=== PATIENT | female | born 1995 | race Caucasian/White ===

== ENCOUNTER 2016-12-02 21:45 | Emergency (ER) | payer SELFPAY ==
[~2016-12-02] VITALS: Ht 154.9 cm; Wt 57.8 kg
[2016-12-02 23:20] LABS: HEMATOCRIT 35.9 % (36.0-46.0); MCH 29.8 PG (29.0-34.0); MCHC 33.4 G/DL (30.0-36.0); MCV 89.1 FL (83-99); PLATELET COUNT 210 K/uL (156-360); RBC DIS.WIDTH-CV 14.1 % (11.8-14.6); RBC DIS.WIDTH-SD 45.1 % (39-53); RED BLOOD COUNT 4.03 M/uL (3.80-5.20); WHITE BLOOD COUNT 11.1 K/uL (4.1-10.2)
[2016-12-02 23:27] LABS: CHLORIDE 112 mEq/L (99-109); D-DIMER ELISA < 150.00 ng/mLDDU (<230); POTASSIUM 3.7 mEq/L (3.7-5.4); SODIUM 143 mEq/L (136-147)
[2016-12-02 23:28] LABS: MAGNESIUM 2.2 mg/dL (1.3-2.7)
[2016-12-02 23:30] LABS: GLUCOSE 97 mg/dL (70-99)
[2016-12-02 23:31] LABS: ANION GAP 7 MEQ/L (2-14)
[2016-12-02 23:32] LABS: TOTAL BILIRUBIN 0.4 mg/dL (0.0-1.0)
[2016-12-02 23:34] LABS: ALKALINE PHOSPHATASE 48 IU/L (3-129); GFR ESTIMATE (CALCULATED) > 59 mL/min/
[2016-12-02 23:35] LABS: UREA NITROGEN (BUN) 7 mg/dL (9-23)
[2016-12-02 23:37] LABS: LIPASE 31 U/L (1.0-51.0)
[2016-12-02 23:38] LABS: CREATINE KINASE 30 IU/L (1-294); TOTAL CK 30 IU/L (1-294)
[2016-12-02 23:39] LABS: TROP-I INTERPRETATION NEGATIVE; TROPONIN-I < 0.01 ng/mL (0.0-0.30)
[2016-12-02 23:46] LABS: QUANTITATIVE HCG < 4.0 MIU/ML
[2016-12-02 23:47] LABS: CK-MB 0.4 ng/mL (0.0-4.9)
[2016-12-03 00:29] LABS: ADD MIUA? YES; BILIRUBIN NEGATIVE; BLOOD NEGATIVE; COLOR STRAW ((YELLOW)); GLUCOSE (STRIP) NEGATIVE; KETONES 5; LEUKOCYTES MODERATE; NITRITE NEGATIVE; PROTEIN (STRIP) NEGATIVE; SPECIFIC GRAVITY 1.006 (1.000-1.030); UROBILINOGEN 0.2 MG/DL (0.2-1.0)
[2016-12-03 00:44] LABS: BACTERIA RARE /HPF; EPITHELIAL CELLS 1+ /HPF; MUCUS TRACE /LPF; RED BLOOD CELLS 0-5 /HPF (0-5); UCUL ADDED? YES
[2016-12-03 01:25] LABS: TROP-I INTERPRETATION NEGATIVE; TROPONIN-I < 0.01 ng/mL (0.0-0.30)
[2016-12-03 01:53] VITALS: BP 118/64
== END 2016-12-03 02:00 | disposition home or self-care (01) ==
LOC: EME 21:45 → EDBD 21:45 → EME 12-03 02:00
PROVIDERS: Emergency Medicine
DX: R07.89 Other chest pain (principal); R00.2 Palpitations; N39.0 Urinary tract infection, site not specified; I47.1 Supraventricular tachycardia; I45.10 Unspecified right bundle-branch block; F41.9 Anxiety disorder, unspecified; Z98.890 Other specified postprocedural states
CPT/HCPCS: 71020; 80053; 81003; 82550; 82553; 83690; 83735; 84100; 84443; 84484; 84702; 85027; 85379; 87086; 93005; 99281; 99285; J7030